=== PATIENT | female | born 1950 | race Caucasian/White ===

== ENCOUNTER → 2016-12-06 | Outpatient (CLI) | payer OTHER, MEDICARE ==
[~2016-12-06] VITALS: Ht 180.3 cm; Wt 99.3 kg
[~2016-12-06] MED LIST: COZAAR 50 MG TA50 M2 PO; LIPITOR 20 MG T20 M1 PO; METFORMIN HCL500 MG PO; MOBIC15 MG PO; OMEPRAZOLE 20 M20 M1 PO; TIROSINT125 MCG PO; TRAMADOL 50 MG50 MG PO; TYLENOL EXTRA500 MG PO; TYLENOL PM EX-1 EACH PO
--- NOTE | ~2016-12-06 | HPC ---
[facility] [address] [place] [address] PAIN MANAGEMENT CONSULTATION Name: VINCENT CANDELARIO Room #: REG [facility].#: [id number] Admission: 12/06/16 Attend Phys: Andriy Crowley DO Discharge: Date of : 52 Report #: [id number] THIS REPORT FOR: //name// CC: Meng Crowley The patient is a 66-year-old female seen in consultation at the request of Dr. Coombs for evaluation of pain, low back, radiating to the groin. The patient notes pain began after a bus ride to [place]. She has tried chiropractic manipulation, started physical therapy, Naprosyn, rotated to Meloxicam, all with nominal efficacy. Rates the pain anywhere from a 2-9 on a VAS. Notes pain is continuous, cramping, and sharp, exacerbated when she is recumbent, does get some relief with heat and ice. She notes no specific weakness, paresthesia, bowel or bladder continence changes nor saddle anesthesia. REVIEW OF SYSTEMS: A complete review of systems was attached to chart and was gone over with the patient. She is , does not smoke, drink alcohol to excess. History of non-insulin dependent diabetes, treated with metformin, most recent hemoglobin A1c was 6.4; hypertension, treated with losartan, levothyroxine for longstanding hypothyroidism, has started on omeprazole recently for some gastroesophageal reflux generally exacerbated with current medications. Dyslipidemia for which she takes atorvastatin. Surgical history includes only 2 C-sections. The patient continued to work despite pain. Pain impact score is fairly low, simply affecting sleep rather dramatically. PHYSICAL EXAMINATION: Reveals a 5 feet 1 inch, 214 pounds female, BMI is 30.6 kg/m2. Blood pressure is 162/90, pulse 93, and respirations 16. Cranial nerves 2-12 are grossly intact. Pupils are equal and reactive to light and accommodation. Extraocular muscles are intact. She does have a little lateral gaze nystagmus. Thyroid is modestly enlarged. Upper extremity strength is generally preserved, though right shoulder has some decreased range of motion. Heart is regular and rhythmical with a grade 1 to 2/6 systolic ejection murmur. Lungs are clear. Endomorphic build. Rises from chair using armrest. She has a nominally antalgic gait. Lumbar flexion is limited to about 70 degrees. Lower extremity strength is symmetric at 4/5 to all muscle groups tested. Patellar and Achilles reflexes are preserved. Straight leg raise is negative. Eloy test is nominally positive. Passive rotation of the hip is unremarkable. She does have pain in the low back, exacerbated with rotation and side bending, centered around the L4-L5 area. DIAGNOSTIC STUDIES: Include x-rays of the lumbar spine noting grade 1 anterolisthesis at L4-L5. [address] [address] PAIN MANAGEMENT CONSULTATION Name: VINCENT CANDELARIO Room #: [facility].#: [id number] Admission: 12/06/16 Attend Phys: Andriy Crowley DO Discharge: Date of : 52 Report #: [id number] ASSESSMENT: Symptomatic lumbosacral spondylosis and axial back pain. RECOMMENDATION: 1. Lumbar facet injection under fluoroscopy today, bilateral L4-L5. 2. Range of motion, core strengthening exercises discussed. 3. Tramadol 50 mg as needed for pain. Continue Meloxicam 15 mg 1 a day. 4. Follow up in 2 weeks for reevaluation and consideration for referral for specific core therapy, PT versus epidural injection under fluoroscopy if indicated by clinical exam at that time. Thank you for allowing me to participate in the patient's care. I will keep you abreast of her progress. PROCEDURE: Bilateral L4-L5 facet joint injection under fluoroscopy. Fluoroscopy time was under 20 seconds. PROCEDURE NOTE: After written informed consent was obtained, the patient was taken to the fluoroscopy suite and placed in prone position. After sterile prep and drape, skin wheal was raised. A 22-gauge stylet needle was placed to contact the inferior aspect of the right L4-L5 facet joint. AP and lateral projections showed good needle placement. A 30 mg of triamcinolone plus 1 mL of 0.5% preservative-free bupivacaine was injected into the joint. Needle was removed. Attention was directed at the contralateral side, which was treated in an identical fashion. Please note, the patient noted pain was absent on discharge. Follow up in 2 weeks for reevaluation. <ELECTRONICALLY SIGNED> By: Andriy Crowley DO 12/10/16 [id number] Andriy Crowley DO /nt
[2016-12-06 08:21] VITALS: BP 162/90
== END | disposition home or self-care (01) ==
LOC: PAIN 06:25
DX: M47.816 Spondylosis without myelopathy or radiculopathy, lumbar region (principal); M54.9 Dorsalgia, unspecified; M43.16 Spondylolisthesis, lumbar region; E11.9 Type 2 diabetes mellitus without complications; I10 Essential (primary) hypertension; E03.9 Hypothyroidism, unspecified; E78.5 Hyperlipidemia, unspecified; K21.9 Gastro-esophageal reflux disease without esophagitis; Z79.899 Other long term (current) drug therapy

== ENCOUNTER → 2016-12-20 | Outpatient (CLI) | payer OTHER, MEDICARE ==
[~2016-12-20] VITALS: Ht 154.9 cm; Wt 97.3 kg
--- NOTE | ~2016-12-20 | HPC ---
[facility] [place] [address] PAIN MANAGEMENT CONSULTATION Name: VINCENT CANDELARIO Room #: REG [facility]#: [id number] Admission: 12/20/16 Attend Phys: Andriy Crowley DO Discharge: Date of : 52 Report #: [id number] THIS REPORT FOR: //name// CC: Marina Crowley HISTORY OF PRESENT ILLNESS: The patient is a 66-year-old female seen in consultation on 12/06/2016, diagnosed with lumbosacral spondylosis, axial back pain, component of lumbar radiculopathy. Proceeded with bilateral L4-L5 facet joint injections at last visit. She returns to pain clinic today. Please note that the patient notes significant improvement of baseline pain, in fact rates the pain 1 on a VAS. Pain is not interfered with activity. She continues to take some meloxicam, but really no other pain medicine other than tramadol. She does have a prescription for tramadol. PHYSICAL EXAMINATION: Shows 66-year-old female, BMI is elevated at 40.5 kilograms per meter squared. Vital signs stable as noted in the EMR. Rises from chair easily. Gait is tandem. Lumbar flexion is good. There is no discrete trigger points noted in the low back. Prior beltline, L4-L5 facet mediated pain seems to be abated at present. RECOMMENDATION: We discussed today therapeutic options at length. I used a plastic model spine to review the patient's anatomy and correlated the plastic model with the fluoroscopic images from our procedure. I pointed out that if symptoms recur within the next few weeks, we will move forward with medial branch dorsal rami diagnostic block in consideration of neurolysis of same. If, however, she does well and symptoms recur in several months, we can repeat the facet joint injections p.r.n. Presently, I am happy to report the patient really does not warrant interventional therapy at this time. She is discharged in good and stable condition. We spent approximately 15 minutes of time discussing the patient's care. <ELECTRONICALLY SIGNED> By: Andriy Crowley DO 12/21/16 [id number] [id number] Andriy Crowley DO /nt
[2016-12-20 14:03] VITALS: BP 137/69
== END | disposition home or self-care (01) ==
LOC: PAIN 07:16
DX: M54.16 Radiculopathy, lumbar region (principal); M47.817 Spondylosis without myelopathy or radiculopathy, lumbosacral region; Z68.41 Body mass index [BMI] 40.0-44.9, adult